=== PATIENT | female | born 1940 | race Caucasian/White ===

== ENCOUNTER → 2017-03-16 | Outpatient (CLI) | payer MEDICARE, BC ==
--- NOTE | 2017-03-20 07:59 | MM ---
Reason for exam: screening (asymptomatic). Last mammogram was performed 1 year and 5 months ago. History: Patient is postmenopausal, has history of high-risk lesion on a previous biopsy at age 67, and history of other cancer. Family history of breast cancer in daughter at age 52. High risk left mammotome panel of the left breast, February 26, 2008. Benign stereotactic core biopsy of the right breast, December 10, 1998. Core biopsy of the right breast. Took estrogen for 21 years beginning at age 46. Physical Findings: A clinical breast exam by your physician is recommended on an annual basis and results should be correlated with mammographic findings. MG 3D Screening Mammo W/Cad Bilateral CC and MLO view(s) were taken. Prior study comparison: October 29, 2015, bilateral MG screening mammo w CAD. September 03, 2014, bilateral MG screening mammo w CAD. There are scattered fibroglandular densities. Previous mammotome biopsy in the right and left breast. There is chronic nodularity bilaterally. No significant changes when compared with prior studies. ASSESSMENT: Negative, BI-RAD 1 RECOMMENDATION: Routine screening mammogram of both breasts in 1 year.
== END | disposition home or self-care (01) ==
LOC: RADMAMWWP 09:35
PROVIDERS: ATTEND Family Medicine
DX: Z12.31 Encounter for screening mammogram for malignant neoplasm of breast (principal)
CPT/HCPCS: 77063; G0202

== ENCOUNTER 2017-07-25 14:02 | Emergency (ER) | payer MEDICARE, BC ==
[2017-07-25 14:10] VITALS: RESP 16; TEMP 97.7
--- NOTE | 2017-07-25 14:38 | ED ---
General Adult HPI - General Chief complaint: Head Injury Stated complaint: Fell/Head Injury Time Seen by Provider: 07/25/17 14:29 Source: patient, family, RN notes reviewed Mode of arrival: wheelchair Limitations: no limitations - History of Present Illness Initial comments: 77-year-old female presents to the emergency Department chief complaint of fall with head injury. On Sunday night she was reaching for something she fell backwards hit the back of her head. She states she did not pass out there is no lightheadedness or dizziness before the fall. She states she iced it without any issues. She states since she's developed this headache and back for head and she's noticed some muscle pain into the left side of her neck with some pain with movement of the neck. She denies any numbness or tingling with this. He they state there is been no fever chills. They were concerned due to the continued pain in the next without that they should be evaluated. Patient denies any recent fever, chills, shortness of breath, chest pain, back pain, abdominal pain, nausea vomiting, numbness or tingling, dysuria or hematuria, constipation or diarrhea, visual changes, or any other current symptoms. - Related Data Home Medications Medication Instructions Recorded Confirmed Aspirin [Adult Low Dose Aspirin EC] 81 mg PO DAILY 04/17/16 07/25/17 Atorvastatin [Lipitor] 10 mg PO DAILY 04/17/16 07/25/17 Benazepril/Hydrochlorothiazide 1 tab PO DAILY 04/17/16 07/25/17 [Lotensin Hct 10-12.5 mg Tablet] Cholecalciferol [Vitamin D3] 6,000 unit PO DAILY 04/17/16 07/25/17 clonazePAM [KlonoPIN] 1 mg PO AC-BRKFST 04/17/16 07/25/17 Cyanocobalamin (Vitamin B-12) 1,000 mcg PO DAILY 07/25/17 07/25/17 [Vitamin B-12] clonazePAM [KlonoPIN] 1 mg PO DAILY@1200 PRN 07/25/17 07/25/17 clonazePAM [KlonoPIN] 2 mg PO HS 07/25/17 07/25/17 Allergies Allergy/AdvReac Type Severity Reaction Status Date / Time pneumococcal vaccine Allergy Rash/Hives Verified 07/25/17 14:43 ciprofloxacin [From Cipro] AdvReac Nausea & Verified 07/25/17 14:43 Vomiting hydrocodone [From Lortab] AdvReac Nausea & Verified 07/25/17 14:43 Vomiting Review of Systems ROS Statement: Those systems with pertinent positive or pertinent negative responses have been documented in the HPI. ROS Other: All systems not noted in ROS Statement are negative. Past Medical History Past Medical History: Cancer, Diabetes Mellitus, GERD/Reflux, Hyperlipidemia, Hypertension Additional Past Medical History / Comment(s): hx:irreg. heart rate, skin cancer , current constipation, diet controlled diabetic History of Any Multi-Drug Resistant Organisms: None Reported Past Surgical History: Heart Catheterization, Hysterectomy, Tonsillectomy Past Anesthesia/Blood Transfusion Reactions: Motion Sickness Past Psychological History: Depression Smoking Status: Never smoker - Past Family History Brother(s) Family Medical History: Cancer Additional Family Medical History / Comment(s): colon Daughter(s) Family Medical History: Cancer Additional Family Medical History / Comment(s): inflammatory cancer stage IV General Exam Limitations: no limitations General appearance: alert, in no apparent distress Head exam: Present: atraumatic, normocephalic, normal inspection Eye exam: Present: normal appearance, PERRL, EOMI. Absent: scleral icterus, conjunctival injection, periorbital swelling ENT exam: Present: normal exam, mucous membranes moist Neck exam: Present: normal inspection, tenderness (Along the left lateral paraspinal region), full ROM. Absent: meningismus, lymphadenopathy Respiratory exam: Present: normal lung sounds bilaterally. Absent: respiratory distress, wheezes, rales, rhonchi, stridor Cardiovascular Exam: Present: regular rate, normal rhythm, normal heart sounds. Absent: systolic murmur, diastolic murmur, rubs, gallop, clicks Neurological exam: Present: alert, oriented X3, CN II-XII intact, normal gait, reflexes normal. Absent: motor sensory deficit Psychiatric exam: Present: normal affect, normal mood Skin exam: Present: warm, dry, intact, normal color. Absent: rash Course Vital Signs 07/25/17 14:06 Temperature 97.7 F Pulse Rate 80 Respiratory 16 Rate Blood Pressure 133/74 O2 Sat by Pulse 97 Oximetry Medical Decision Making - Medical Decision Making 77-year-old female presents for fall with head injury. At this time patient's CAT scan is reviewed. This time we discussed most likely cervical strain. We did discuss that we we'll give her a short prescription for muscle relaxers. We did discuss her return parameters and follow-up and all questions with this. We discussed watching closely. We discussed all questions. Patient in agreement with plan. - Radiology Data Radiology results: report reviewed, image reviewed Disposition Clinical Impression: Cervical strain, Minor head injury without loss of consciousness Disposition: HOME SELF-CARE Condition: Stable Instructions: Head Injury (ED), Cervical Strain (ED) Additional Instructions: Please use medication as discussed. Please follow up with family doctor if symptoms have not improved over the next two days. Please return to the emergency room if your symptoms increase or worsen or for any other concerns. Referrals: Gentry Metcalf MD [Primary Care Provider] - 1-2 days Time of Disposition: 15:37
--- NOTE | 2017-07-25 15:20 | CT ---
EXAMINATION TYPE: CT brain damian loza DATE OF EXAM: 07/25/2017 COMPARISON: NONE HISTORY: Patient complains of fall today with blow to back of head and neck pain. CT DLP: 1625 mGycm. Automated Exposure Control for Dose Reduction was Utilized. TECHNIQUE: CT scan of the head and cervical spine are performed without contrast. FINDINGS: There is no acute intracranial hemorrhage hemorrhage or midline shift identified. There i s ventricular and sulcal prominence consistent with diffuse cerebral atrophy. There is low-attenuatio n in the periventricular white matter. There is 1.0 cm calcified right frontal meningioma or osteoma axial image 24. The globes are intact and the visualized sinuses are clear. The calvarium is intact. Cervical spine is visualized in its entirety from C1 through upper thoracic levels and demonstrates s traightened alignment without evidence of acute fracture or dislocation. Prevertebral soft tissue ap pears within normal limits. The C1-C2 articulation is within normal limits on the coronal images. Vertebral body heights are maintained. There is mild disc space narrowing C5-C6 in the C2-C3 levels. There is mild anterior spurring C3-C4 level. There is moderate disc space narrowing and spurring C6-C 7 level. Spinal canal is grossly preserved on sagittal images. Review of axial images shows multilevel mild left-sided uncovertebral facet degenerative changes. The re is posterior spur disc complex effacing anterior thecal sac at C6-C7 level. There is 1.0 cm left t hyroid nodule posteriorly lower pole level axial image 74. Visualized lung apices are clear. IMPRESSION: 1. There is no acute fracture or dislocation evident in the cervical spine. Straightening of cervical spine with multilevel degenerative changes seen as detailed above 2. No acute intracranial hemorrhage or midline shift is seen. There is mild to moderate diffuse cereb ral atrophy and chronic small vessel ischemic change noted.
[2017-07-25] MEDS ORDERED: CYCLOBENZAPRINE 10MG STARTER 3 TAB BTL PO STA (15:37)
[2017-07-25 15:52] VITALS: BP 140/96; PULSE 70
== END 2017-07-25 15:53 | disposition home or self-care (01) ==
LOC: EC 14:02
DX: S16.1XXA Strain of muscle, fascia and tendon at neck level, initial encounter (principal); S09.90XA Unspecified injury of head, initial encounter; E11.9 Type 2 diabetes mellitus without complications; E78.5 Hyperlipidemia, unspecified; I10 Essential (primary) hypertension; Z85.828 Personal history of other malignant neoplasm of skin; Z79.82 Long term (current) use of aspirin; Z79.899 Other long term (current) drug therapy; Z88.1 Allergy status to other antibiotic agents; Z88.7 Allergy status to serum and vaccine; Z88.8 Allergy status to other drugs, medicaments and biological substances; W18.09XA Striking against other object with subsequent fall, initial encounter; Y92.009 Unspecified place in unspecified non-institutional (private) residence as the place of occurrence of the external cause
CPT/HCPCS: 70450; 72125; 99283

== ENCOUNTER → 2019-03-20 | Outpatient (CLI) | payer MEDICARE, BC ==
--- NOTE | 2019-03-24 10:29 | MM ---
Reason for exam: screening (asymptomatic). Last mammogram was performed 2 years ago. History: Patient is postmenopausal, has history of high-risk lesion on a previous biopsy at age 67, and history of other cancer. Family history of breast cancer in daughter at age 57. High risk left mammotome panel of the left breast, February 26, 2008. Benign stereotactic core biopsy of the right breast, December 10, 1998. Core biopsy of the right breast. Took estrogen for 21 years beginning at age 46. Physical Findings: A clinical breast exam by your physician is recommended on an annual basis and results should be correlated with mammographic findings. MG 3D Screening Mammo W/Cad Bilateral CC and MLO view(s) were taken. Prior study comparison: March 16, 2017, bilateral MG 3d screening mammo w/cad. October 29, 2015, bilateral MG screening mammo w CAD. There are scattered fibroglandular densities. Previous mammotome biopsy in the right and left breast. No significant changes when compared with prior studies. ASSESSMENT: Benign, BI-RAD 2 RECOMMENDATION: Routine screening mammogram of both breasts in 1 year.
== END | disposition home or self-care (01) ==
LOC: RADMAMWWP 15:09
PROVIDERS: ATTEND Family Medicine
DX: Z12.31 Encounter for screening mammogram for malignant neoplasm of breast (principal)
CPT/HCPCS: 77063; 77067

== ENCOUNTER 2019-05-07 02:16 | Inpatient (IN) | payer MEDICARE, BC ==
--- NOTE | 2019-05-07 02:37 | ED ---
Fall HPI - General Chief Complaint: Fall Stated Complaint: Fall, R Arm Injury Time Seen by Provider: 05/07/19 02:22 Source: EMS Mode of arrival: EMS - History of Present Illness Initial Comments: This patient is an 79-year-old woman who presents as a transfer from [facility]. Patient had gone there to be seen about a right shoulder injury. The patient states that tonight around 8 PM, she had gone to pick something up on the stairs. She states that when she stood up she lost balance and fell striking her right shoulder against a wall. She denies having any other injury. She did not hit her head or neck. No chest, back, abdomen or other extremity pain. No loss of consciousness. Patient states that she then called a neighbor who helped get her to the other hospital. At the other hospital, she was found to have a right humerus fracture dislocation, and the case was discussed with our orthopedic surgeon here and she was transferred for further care. The patient states currently that her pain is mild to moderate, aching, constant. She states it is better since being immobilized. She is declining additional analgesia at this point. She denies weakness into the hand or numbness. Complaint: fall -: hour(s) Fall From: standing When Fall Occurred: 4-6 hours [employer] Fall Witnessed: no Place Fall Occurred: home Loss of Consciousness: none Prolonged Down Time?: no Symptoms Prior to Fall: none Location - Extremities: Right: Shoulder Severity: moderate Quality: aching Context: tripped/slipped Associated Symptoms: denies - Related Data Home Medications Medication Instructions Recorded Confirmed Aspirin [Adult Low Dose Aspirin EC] 81 mg PO DAILY 04/17/16 07/25/17 Atorvastatin [Lipitor] 10 mg PO DAILY 04/17/16 07/25/17 Benazepril/Hydrochlorothiazide 1 tab PO DAILY 04/17/16 07/25/17 [Lotensin Hct 10-12.5 mg Tablet] Cholecalciferol [Vitamin D3] 6,000 unit PO DAILY 04/17/16 07/25/17 clonazePAM [KlonoPIN] 1 mg PO AC-BRKFST 04/17/16 07/25/17 Cyanocobalamin (Vitamin B-12) 1,000 mcg PO DAILY 07/25/17 07/25/17 [Vitamin B-12] clonazePAM [KlonoPIN] 1 mg PO DAILY@1200 PRN 07/25/17 07/25/17 clonazePAM [KlonoPIN] 2 mg PO HS 07/25/17 07/25/17 Previous Rx's Medication Instructions Recorded Ibuprofen [Motrin] 600 mg PO Q6HR PRN #20 tab 07/25/17 Allergies Allergy/AdvReac Type Severity Reaction Status Date / Time pneumococcal vaccine Allergy Rash/Hives Verified 07/25/17 14:43 ciprofloxacin [From Cipro] AdvReac Nausea & Verified 07/25/17 14:43 Vomiting hydrocodone [From Lortab] AdvReac Nausea & Verified 07/25/17 14:43 Vomiting Review of Systems ROS Statement: Those systems with pertinent positive or pertinent negative responses have been documented in the HPI. ROS Other: All systems not noted in ROS Statement are negative. Constitutional: Denies: fever, chills, weakness Respiratory: Denies: cough, dyspnea Cardiovascular: Denies: chest pain, palpitations Gastrointestinal: Denies: abdominal pain, vomiting Musculoskeletal: Reports: as per HPI, arthralgia. Denies: back pain Skin: Denies: rash Neurological: Denies: headache, weakness, numbness Past Medical History Past Medical History: Cancer, Diabetes Mellitus, GERD/Reflux, Hyperlipidemia, Hypertension Additional Past Medical History / Comment(s): hx:irreg. heart rate, skin cancer, current constipation, diet controlled diabetic History of Any Multi-Drug Resistant Organisms: None Reported Past Surgical History: Heart Catheterization, Hysterectomy, Tonsillectomy Past Anesthesia/Blood Transfusion Reactions: Motion Sickness Past Psychological History: Depression Smoking Status: Never smoker - Past Family History Brother(s) Family Medical History: Cancer Additional Family Medical History / Comment(s): colon Daughter(s) Family Medical History: Cancer Additional Family Medical History / Comment(s): inflammatory cancer stage IV General Exam General appearance: alert, in no apparent distress Head exam: Present: atraumatic, normocephalic Eye exam: Present: normal appearance. Absent: scleral icterus, conjunctival injection Neck exam: Present: normal inspection, full ROM. Absent: tenderness Respiratory exam: Present: normal lung sounds bilaterally. Absent: respiratory distress, wheezes, rales, rhonchi, stridor, chest wall tenderness Cardiovascular Exam: Present: regular rate, normal rhythm, normal heart sounds. Absent: systolic murmur, diastolic murmur, rubs, gallop GI/Abdominal exam: Present: soft. Absent: distended, tenderness, guarding, rebound Extremities exam: Present: tenderness (Proximal right humerus), normal capillary refill, other (Right shoulder sling) Back exam: Present: normal inspection. Absent: vertebral tenderness Neurological exam: Present: alert. Absent: motor sensory deficit Skin exam: Present: warm, dry, intact, normal color. Absent: rash Course Vital Signs 05/07/19 05/07/19 05/07/19 02:17 03:48 03:59 Temperature 98.2 F Pulse Rate 87 86 70 Respiratory 18 16 16 Rate Blood Pressure 154/88 150/65 156/80 O2 Sat by Pulse 96 94 L 100 Oximetry 05/07/19 05/07/19 05/07/19 04:06 04:18 04:29 Temperature 97.9 F 98.7 F 97.9 F Pulse Rate 92 78 91 Respiratory 18 16 18 Rate Blood Pressure 160/69 142/71 142/71 O2 Sat by Pulse 98 96 96 Oximetry Procedures - Orthopedic Joint Reduction Joint #1 Consent Obtained: written consent Side: right Joint Reduction Location: shoulder Analgesia: procedural sedation Shoulder Technique Used (if applicable): external rotation Post-Reduction Neuro Exam: intact Post-Reduction Vascular Exam: intact Post Reduction X-Ray Obtained: Yes Post Reduction X-Ray Results: reduced Splint Applied: Yes (Right shoulder sling) Patient Tolerated Procedure: well, no complications - Procedural Sedation Procedural Sedation Start Time: 03:50 Procedural Sedation Stop Time: 04:07 Indications: fracture/dislocation reduction ASA Class: II Mallampati Airway Score: 3 Time of Last PO Intake: 20:00 Preparation: athletic monitor applied, pulse oximeter, capnometry used, supplemental O2 applied, suction/airway equipment at bedside, IV secured IV Etomidate Dose (mgs): 8 Complications: hypoxia Interventions: airway repositioned (Mandible lift) Patient Tolerated Procedure: well Disposition Clinical Impression: Fall, Humerus head fracture, Dislocation of humerus, anterior closed Disposition: ADMITTED IP TO THIS [facility] Condition: Fair
[2019-05-07] MEDS ORDERED: ONDANSETRON 4 MG/2 ML VIAL IVP PRN (02:38)
[2019-05-07] MEDS ORDERED: HYDROmorphone 0.5 MG/0.5 ML SYRINGE IVP PRN (02:38)
[2019-05-07] MEDS ORDERED: NALOXONE 0.4 MG/ML 1 ML VIAL IV PRN (02:38)
[2019-05-07] MEDS ORDERED: HYDROmorphone 1 MG/ML 1 ML SYRINGE IVP PRN (02:38)
[2019-05-07] MEDS ORDERED: MAG HYDROX/AL HYDROX/SIMETH 30 ML CUP PO PRN (02:38)
[2019-05-07] MEDS: SODIUM CHLORIDE 0.9% 1,000 ML IV SCH ×2 (02:49→16:22)
[2019-05-07] MEDS ORDERED: ETOMIDATE 2 MG/ML 10 ML VIAL IV STA (02:50)
--- NOTE | 2019-05-07 04:13 | XR ---
EXAMINATION TYPE: XR shoulder limited RT DATE OF EXAM: 05/07/2019 COMPARISON: Yesterday HISTORY: Post reduction TECHNIQUE: Single view. FINDINGS: A single view shows anatomic reduction of the glenohumeral joint. I see no fracture line. : IMPRESSION: Anatomic reduction of the shoulder joint. No definite fracture line seen. Limited exam.
[2019-05-07] MEDS ORDERED: clonazePAM 1 MG TAB PO SCH ×3 (07:30→21:00)
[2019-05-07 08:21] LABS: Glucose,Whole Blood 109 mg/dL (75-99)
[2019-05-07] MEDS ORDERED: DOCUSATE 100 MG CAP PO PRN (09:00)
[2019-05-07] MEDS: ATORVASTATIN 10 MG TAB PO SCH (10:32)
[2019-05-07] MEDS: CHOLECALCIFEROL 1,000 UNIT TAB PO SCH (10:33)
[2019-05-07] MEDS: CYANOCOBALAMIN 500 MCG TAB PO SCH (10:36)
[2019-05-07] MEDS: FAMOTIDINE 20 MG TAB PO SCH ×2 (10:38→20:14)
[2019-05-07] MEDS: LISINOPRIL-HCTZ 10-12.5 MG 1 EACH TAB PO SCH (10:38)
--- NOTE | 2019-05-07 10:54 | P.HPOR ---
History of Present Illness H&P Date: 05/07/19 Chief Complaint: Right Shoulder This patient is an 79-year-old woman seen at bedside this morning. She presented as a transfer from [facility] late last evening/founding partner after a failed reduction of right shoulder dislocation. She states that she injured her right shoulder last evening when she tripped on her stairs and fell striking her right shoulder against a wall. She denies having any other injury. She did not hit her head or neck. No chest, back, abdomen or other extremity pain. No loss of consciousness. The patient states currently that her pain is controlled and mild. She states it is better since being reduced and immobilized. She denies weakness into the hand or numbness/tingling. Review of Systems All systems: negative Constitutional: Denies chills, Denies fever Eyes: denies blurred vision, denies pain Ears, nose, mouth and throat: Denies headache, Denies sore throat Cardiovascular: Denies chest pain, Denies shortness of breath Respiratory: Denies cough Gastrointestinal: Denies abdominal pain, Denies diarrhea, Denies nausea, Denies vomiting Genitourinary: Denies dysuria, Denies hematuria Musculoskeletal: Denies myalgias Integumentary: Denies pruritus, Denies rash Neurological: Denies numbness, Denies weakness Psychiatric: Denies anxiety, Denies depression Endocrine: Denies fatigue, Denies weight change Past Medical History Past Medical History: Cancer, Diabetes Mellitus, GERD/Reflux, Hyperlipidemia, Hypertension Additional Past Medical History / Comment(s): hx:irreg. heart rate, skin cancer, current constipation, diet controlled diabetic History of Any Multi-Drug Resistant Organisms: None Reported Past Surgical History: Heart Catheterization, Hysterectomy, Tonsillectomy Past Anesthesia/Blood Transfusion Reactions: Motion Sickness Past Psychological History: Depression Smoking Status: Never smoker - Past Family History Brother(s) Family Medical History: Cancer Additional Family Medical History / Comment(s): colon Daughter(s) Family Medical History: Cancer Additional Family Medical History / Comment(s): inflammatory cancer stage IV Medications and Allergies Home Medications Medication Instructions Recorded Confirmed Type Aspirin [Adult Low Dose Aspirin EC] 81 mg PO DAILY 04/17/16 05/07/19 History Benazepril/Hydrochlorothiazide 1 tab PO DAILY 04/17/16 05/07/19 History [Lotensin Hct 10-12.5 mg Tablet] Cyanocobalamin (Vitamin B-12) 1,000 mcg PO DAILY 07/25/17 05/07/19 History [Vitamin B-12] Gemfibrozil [Lopid] 600 mg PO DAILY 05/07/19 05/07/19 History Omeprazole [PriLOSEC] 20 mg PO DAILY 05/07/19 05/07/19 History Vitamin D3(Unknown Dose) 1 tab PO DAILY 05/07/19 05/07/19 History busPIRone HCL 15 mg PO BID 05/07/19 05/07/19 History clonazePAM [KlonoPIN] 2 mg PO TID 05/07/19 05/07/19 History cycloSPORINE [Restasis] 1 drop BOTH EYES BID 05/07/19 05/07/19 History Allergies Allergy/AdvReac Type Severity Reaction Status Date / Time pneumococcal vaccine Allergy Rash/Hives Verified 05/07/19 10:24 ciprofloxacin [From Cipro] AdvReac Nausea & Verified 05/07/19 10:24 Vomiting hydrocodone [From Lortab] AdvReac Nausea & Verified 05/07/19 10:24 Vomiting Physical Examination Inspection of right shoulder and arm shows no deformity. There is evolving echymosis in the right upper arm as expected. ROM of [facility] shoulder not tested due to recent dislocation. She is in sling. Neurovascular status is intact grossly with motor and sensation throughout the arm and hand. Hand Riveter and finger intrinsics are 5/5. 2+ radial pulse present and less than 2 sec cap refill present. Results Single view shoulder Xray taken at [facility] shows post reduction GH joint located. Previous CT in [place] shows avulsion of greater tuberosity - Labs Labs: Abnormal Lab Results - Last 24 Hours (Table) 05/07/19 Range/Units 08:09 POC Glucose (mg/dL) 109 H (75-99) mg/dL Assessment and Plan (1) Dislocation of humerus, anterior closed Narrative/Plan: The shoulder has been reduced in ED, there are no plans for surgical intervention, she is NVI and her pain is controlled. She is to maintain sling, be non weightbearing with RUE and follow up in two weeks in office. She may be discharged from an orthopedic standpoint. Current Visit: Yes Status: Acute Priority: Medium Code(s): S43.016A - ANTERIOR DISLOCATION OF UNSPECIFIED HUMERUS, INIT ENCNTR SNOMED Code(s): 02917754 Time with Patient: Less than 30
[2019-05-07] MEDS ORDERED: clonazePAM 1 MG TAB PO PRN ×2 (11:11→12:00)
[2019-05-07 12:20] LABS: Glucose,Whole Blood 109 mg/dL (75-99)
[2019-05-07 13:21] LABS: Appearance,Urine Cloudy (Clear); Bilirubin,Urine Negative (Negative); Blood,Urine Negative (Negative); Color,Urine Yellow; Glucose,Urine (UA) Negative (Negative); Ketones,Urine Trace (Negative); Leukocyte Esterase,Urine Large (Negative); Mucus,Urine Rare /hpf; Nitrite,Urine Negative (Negative); PH, Urine 5.5 (5.0-8.0); Protein,Urine Trace (Negative); RBC,Urine 5 /hpf (0-5); Specific Gravity,Urine 1.015 (1.001-1.035); Squamous Epithelial Cell,Urine <1 /hpf (0-4); Urobilinogen,Urine <2.0 mg/dL (<2.0)
--- NOTE | 2019-05-07 13:39 | P.CONS ---
History of Present Illness - Reason for Consult Consult date: 05/07/19 Medical management - History of Present Illness This is an 79-year-old female patient of Dr. Zac Metcalf with past medical history of hypertension, hyperlipidemia, gastroesophageal reflux disease, diabetes mellitus type 2, skin cancer, recurrent depression and generalized anxiety disorder. 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 She denies any loss of consciousness, head injury, other injuries. She denies lightheadedness or dizziness. She was initially seen at [facility] after a field reduction of the right patient is planning to return home at the time of discharge. shoulder dislocation. In the emergency center, patient underwent shoulder reduction and was subsequently admitted to orthopedics on the [facility] floor. The pain is currently well controlled, right arm sling in place. Review of Systems Constitutional: Denies chills, Denies fatigue, Denies fever, Denies lethargy, Denies poor appetite, Denies weakness, Denies weight loss Eyes: denies blurred vision, denies pain Ears, nose, mouth and throat: Denies dysphagia, Denies headache, Denies nasal congestion, Denies nasal discharge, Denies sore throat, Denies vertigo Cardiovascular: Denies chest pain, Denies decreased exercise tolerance, Denies dyspnea on exertion, Denies leg edema, Denies lightheadedness, Denies shortness of breath, Denies syncope Respiratory: Denies cough, Denies cough with sputum, Denies dyspnea, Denies excessive sputum, Denies hemoptysis, Denies home oxygen, Denies wheezing Gastrointestinal: Denies abdominal pain, Denies diarrhea, Denies loss of appetite, Denies melena, Denies nausea, Denies vomiting Genitourinary: Denies dysuria, Denies hematuria, Denies urgency, Denies urinary frequency Musculoskeletal: Denies frequent falls, Denies gait dysfunction, Denies muscle weakness, Denies myalgias Integumentary: Denies pruritus, Denies rash, Denies wounds Neurological: Denies change in mentation, Denies change in speech, Denies numbness, Denies weakness Psychiatric: Denies anxiety, Denies depression Endocrine: Denies fatigue, Denies weight change Past Medical History Past Medical History: Cancer, Diabetes Mellitus, GERD/Reflux, Hyperlipidemia, Hypertension Additional Past Medical History / Comment(s): hx:irreg. heart rate, skin cancer, current constipation, diet controlled diabetic History of Any Multi-Drug Resistant Organisms: None Reported Past Surgical History: Heart Catheterization, Hysterectomy, Tonsillectomy Past Anesthesia/Blood Transfusion Reactions: Motion Sickness Past Psychological History: Depression Smoking Status: Never smoker Additional Past Alcohol Use History / Comment(s): Patient is a lifelong nonsmoker, no illicit drug use, no alcohol use. Patient lives at home alone. is at the memory care unit at [facility]. - Past Family History Brother(s) Family Medical History: Cancer Additional Family Medical History / Comment(s): Patient has one brother the past from cancer most likely ulcerative colon cancer with metastatic disease. Daughter(s) Family Medical History: Cancer Additional Family Medical History / Comment(s): Patient is a total of 3 daughters to her life with no major medical problems. One has from breast cancer with metastatic disease to the brain. Father Additional Family Medical History / Comment(s): Father at age 76 from myocardial infarction. Mother Additional Family Medical History / Comment(s): Mother at age 92 from old age. Sister(s) Additional Family Medical History / Comment(s): Patient has 2 sisters. One has degenerative disc disease and chronic back problems, one she has no contact with. Medications and Allergies Home Medications Medication Instructions Recorded Confirmed Type Aspirin [Adult Low Dose Aspirin EC] 81 mg PO DAILY 04/17/16 05/07/19 History Benazepril/Hydrochlorothiazide 1 tab PO DAILY 04/17/16 05/07/19 History [Lotensin Hct 10-12.5 mg Tablet] Cyanocobalamin (Vitamin B-12) 1,000 mcg PO DAILY 07/25/17 05/07/19 History [Vitamin B-12] Gemfibrozil [Lopid] 600 mg PO DAILY 05/07/19 05/07/19 History Omeprazole [PriLOSEC] 20 mg PO DAILY 05/07/19 05/07/19 History Vitamin D3(Unknown Dose) 1 tab PO DAILY 05/07/19 05/07/19 History busPIRone HCL 15 mg PO BID 05/07/19 05/07/19 History clonazePAM [KlonoPIN] 2 mg PO TID 05/07/19 05/07/19 History cycloSPORINE [Restasis] 1 drop BOTH EYES BID 05/07/19 05/07/19 History Allergies Allergy/AdvReac Type Severity Reaction Status Date / Time pneumococcal vaccine Allergy Rash/Hives Verified 05/07/19 10:24 ciprofloxacin [From Cipro] AdvReac Nausea & Verified 05/07/19 10:24 Vomiting hydrocodone [From Lortab] AdvReac Nausea & Verified 05/07/19 10:24 Vomiting Physical Exam Vitals: Vital Signs Temp Pulse Pulse Pulse Resp BP BP 05/07/19 07:56 98.9 F 104 H 15 171/79 05/07/19 04:55 98.2 F 80 14 156/73 05/07/19 04:29 97.9 F 91 18 142/71 05/07/19 04:18 98.7 F 78 16 142/71 05/07/19 04:06 97.9 F 92 18 160/69 05/07/19 03:59 70 16 156/80 05/07/19 03:48 86 16 150/65 05/07/19 02:17 98.2 F 87 18 154/88 Pulse Ox 05/07/19 07:56 94 L 05/07/19 04:55 96 05/07/19 04:29 96 05/07/19 04:18 96 05/07/19 04:06 98 05/07/19 03:59 100 05/07/19 03:48 94 L 05/07/19 02:17 96 Intake and Output 05/06/19 05/07/19 05/07/19 22:59 06:59 14:59 Intake Total 125 Balance 125 Intake: Intake, IV Titration 125 Amount Sodium Chloride 0.9% 1, 125 000 ml @ 125 mls/hr IV . Q8H [facility] Rx#:[id number] Other: Weight 74.843 kg Gen: This is a 79-year-old female. Patient was independent appears to be comfortable and in no acute distress. HEENT: Head is atraumatic, normocephalic. Pupils equal, round. Sclerae is anicteric. NECK: Supple. No JVD. No lymphadenopathy. No thyromegaly. LUNGS: Clear to auscultation. No wheezes or rhonchi. No intercostal retractions. HEART: Regular rate and rhythm. No murmur. ABDOMEN: Soft. Bowel sounds are present. No masses. No tenderness. EXTREMITIES: No pedal edema. No calf tenderness. Dorsalis pedis +2 bilaterally. Right arm sling in place. NEUROLOGICAL: Patient is awake, alert and oriented x3. Cranial nerves 2 through 12 are grossly intact. Results Labs: Abnormal Lab Results - Last 24 Hours (Table) 05/07/19 Range/Units 08:09 POC Glucose (mg/dL) 109 H (75-99) mg/dL Assessment and Plan Plan: 1. Dislocation right humerus status post reduction. Patient has been seen by orthopedic. Patient to maintain sling and be nonweightbearing. Patient is to follow-up in the office in 2 weeks. 2. Hypertension. Continue Lotensin. 3. Hyperlipidemia. Continue Lopid. 4. History of diabetes mellitus type 2. 5. Recurrent depression and generalized anxiety disorder. Continue BuSpar 15 mg twice daily, Klonopin 2 mg 3 times daily. 6. Gastroesophageal reflux disease. Continue omeprazole. 7. History of diabetes mellitus type 2, resolved after weight loss. Discharge plan: Home. Medication reconciliation has been reviewed for discharge. Patient is cleared from medicine for discharge home. Impression and plan of care have been directed as dictated by the signing physician. Cheri Dewitt nurse practitioner acting as scribe for signing physician.
[2019-05-07] MEDS: busPIRone HCl 10 MG TAB PO SCH (16:15)
--- NOTE | 2019-05-07 16:27 | P.DS ---
Providers Date of admission: 05/07/19 02:38 Expected date of discharge: 05/07/19 Attending physician: García Balderrama Consults: 05/07/19 10:08 Consult Physician Routine Consulting Provider: Cornelius Garcia Reason/Comments: medical management Do you want consulting provider notified?: Yes Primary care physician: Gentry Metcalf - Discharge Diagnosis(es) (1) Dislocation of humerus, anterior closed Patient was admitted 05/07/19 through the ED for right shoulder glenohumeral dislocation. The shoulder dislocation was successfully reduced in ED. Xrays showed confirmation of reduction. Her pain is improved and controlled. She is neurovascularly throughout the right upper extremity. Hospital course has remained without complication. On day of discharge she is afebrile, vital signs stable, labs within acceptable ranges, tolerating by mouth meds and diet, voiding without difficulty, positive flatus, denies abdominal pain or calf pain, pain is controlled on oral pain medication and has no new complaints. Calves are soft and nontender, abdomen soft and nontender. Review of systems is negative for numbness, tingling, fever, chills, chest pain, shortness of breath, nausea, vomiting, dizziness, headaches, slurred speech or other. She will be discharged to home and maintain sling untill follow up in two weeks Current Visit: Yes Status: Acute Priority: Medium Patient Condition at Discharge: Fair Plan - Discharge Summary Discharge Rx Participant: Yes New Discharge Prescriptions: No Action Benazepril/Hydrochlorothiazide [Lotensin Hct 10-12.5 mg Tablet] 1 tab PO DAILY Aspirin [Adult Low Dose Aspirin EC] 81 mg PO DAILY Cyanocobalamin (Vitamin B-12) [Vitamin B-12] 1,000 mcg PO DAILY busPIRone HCL 15 mg PO BID Gemfibrozil [Lopid] 600 mg PO DAILY cycloSPORINE [Restasis] 1 drop BOTH EYES BID Vitamin D3(Unknown Dose) 1 tab PO DAILY Omeprazole [PriLOSEC] 20 mg PO DAILY clonazePAM [KlonoPIN] 2 mg PO TID Discharge Medication List Aspirin [Adult Low Dose Aspirin EC] 81 mg PO DAILY 04/17/16 [History] Benazepril/Hydrochlorothiazide [Lotensin Hct 10-12.5 mg Tablet] 1 tab PO DAILY 04/17/16 [History] Cyanocobalamin (Vitamin B-12) [Vitamin B-12] 1,000 mcg PO DAILY 07/25/17 [History] Gemfibrozil [Lopid] 600 mg PO DAILY 05/07/19 [History] Omeprazole [PriLOSEC] 20 mg PO DAILY 05/07/19 [History] Vitamin D3(Unknown Dose) 1 tab PO DAILY 05/07/19 [History] busPIRone HCL 15 mg PO BID 05/07/19 [History] clonazePAM [KlonoPIN] 2 mg PO TID 05/07/19 [History] cycloSPORINE [Restasis] 1 drop BOTH EYES BID 05/07/19 [History] Follow up Appointment(s)/Referral(s): García Balderrama MD [STAFF PHYSICIAN] - 05/21/19 9:00 am Gentry Metcalf MD [Primary Care Provider] - 05/15/19 11:30 am Activity/Diet/Wound Care/Special Instructions: maintain sling non weightbearing RUE take meds as directed F/U in office in one week Discharge Disposition: HOME SELF-CARE
[2019-05-07] MEDS: traMADol 50 MG TAB PO PRN (16:30)
[2019-05-07 17:20] LABS: Glucose,Whole Blood 129 mg/dL (75-99)
[2019-05-07 20:13] LABS: Glucose,Whole Blood 132 mg/dL (75-99)
[2019-05-07] MEDS: clonazePAM 1 MG TAB PO SCH (20:14)
[2019-05-08 07:19] LABS: Glucose,Whole Blood 100 mg/dL (75-99)
[2019-05-08] MEDS: clonazePAM 1 MG TAB PO SCH ×2 (08:12→20:10)
[2019-05-08] MEDS: ATORVASTATIN 10 MG TAB PO SCH (08:12)
[2019-05-08] MEDS: busPIRone HCl 10 MG TAB PO SCH ×2 (08:12→20:11)
[2019-05-08] MEDS: CYANOCOBALAMIN 500 MCG TAB PO SCH (08:13)
[2019-05-08] MEDS: CHOLECALCIFEROL 1,000 UNIT TAB PO SCH (08:13)
[2019-05-08] MEDS: FAMOTIDINE 20 MG TAB PO SCH ×2 (08:13→20:11)
[2019-05-08] MEDS: traMADol 50 MG TAB PO PRN ×2 (08:15→17:37)
[2019-05-08] MEDS: LISINOPRIL-HCTZ 10-12.5 MG 1 EACH TAB PO SCH (09:31)
[2019-05-08 11:46] LABS: Glucose,Whole Blood 111 mg/dL (75-99)
--- NOTE | 2019-05-08 14:33 | P.PN ---
Subjective Progress Note Date: 05/08/19 This is an 79-year-old female patient of Dr. Zac Metcalf with past medical history of hypertension, hyperlipidemia, gastroesophageal reflux disease, diabetes mellitus type 2, skin cancer, recurrent depression and generalized anxiety disorder. 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 She denies any loss of consciousness, head injury, other injuries. She denies lightheadedness or dizziness. She was initially seen at [facility] after a field reduction of the right patient is planning to return home at the time of discharge. shoulder dislocation. In the emergency center, patient underwent shoulder reduction and was subsequently admitted to orthopedics on the [facility] floor. The pain is currently well controlled, right arm sling in place. 05/08: Patient is followed by PT and OT with recommendations for subacute rehab. Patient states that she would like to go to [facility] where her is currently a patient on the memory care [facility]. Patient does state today that she did have urinary symptoms with dysuria when she came in the hospital. There was a urinalysis obtained yesterday afternoon which has been reviewed and positive for urinary tract infection. Patient will be started on Rocephin. Urine culture is in progress. Review of Systems Constitutional: Denies chills, Denies fatigue, Denies fever, Denies lethargy, Denies poor appetite, Denies weakness, Denies weight loss Eyes: denies blurred vision, denies pain Ears, nose, mouth and throat: Denies dysphagia, Denies headache, Denies nasal congestion, Denies nasal discharge, Denies sore throat, Denies vertigo Cardiovascular: Denies chest pain, Denies decreased exercise tolerance, Denies dyspnea on exertion, Denies leg edema, Denies lightheadedness, Denies shortness of breath, Denies syncope Respiratory: Denies cough, Denies cough with sputum, Denies dyspnea, Denies excessive sputum, Denies hemoptysis, Denies home oxygen, Denies wheezing Gastrointestinal: Denies abdominal pain, Denies diarrhea, Denies loss of appetite, Denies melena, Denies nausea, Denies vomiting Genitourinary: Reports dysuria, Denies hematuria, Denies urgency, Denies urinary frequency Musculoskeletal: Denies frequent falls, Denies gait dysfunction, Denies muscle weakness, Denies myalgias Integumentary: Denies pruritus, Denies rash, Denies wounds Neurological: Denies change in mentation, Denies change in speech, Denies numbness, Denies weakness Psychiatric: Denies anxiety, Denies depression Endocrine: Denies fatigue, Denies weight change Objective - Vital Signs Vital signs: Vital Signs Temp 98.3 F 05/08/19 07:00 Pulse 91 05/08/19 07:00 Resp 17 05/08/19 07:00 BP 126/67 05/08/19 07:00 Pulse Ox 94 L 05/08/19 07:00 Intake & Output 05/07/19 05/08/19 05/08/19 18:59 06:59 18:59 Intake Total 480 Balance 480 Intake: Oral 480 Other: Voiding Method Toilet # Voids 1 1 - Exam Gen: This is a 79-year-old female. Patient is sitting up in chair and appears to be comfortable and in no acute distress. HEENT: Head is atraumatic, normocephalic. Pupils equal, round. Sclerae is anicteric. NECK: Supple. No JVD. No lymphadenopathy. No thyromegaly. LUNGS: Clear to auscultation. No wheezes or rhonchi. No intercostal retractions. HEART: Regular rate and rhythm. No murmur. ABDOMEN: Soft. Bowel sounds are present. No masses. No tenderness. EXTREMITIES: No pedal edema. No calf tenderness. Dorsalis pedis +2 bilaterally. Right arm sling in place. NEUROLOGICAL: Patient is awake, alert and oriented x3. Cranial nerves 2 through 12 are grossly intact. - Labs Labs: Abnormal Lab Results - Last 24 Hours (Table) 05/07/19 05/07/19 05/07/19 Range/Units 12:08 12:58 17:01 POC Glucose (mg/dL) 109 H 129 H (75-99) mg/dL Urine Appearance Cloudy H (Clear) Urine Protein Trace H (Negative) Urine Ketones Trace H (Negative) Ur Leukocyte Esterase Large H (Negative) Urine WBC >182 H (0-5) /hpf Urine Mucus Rare H (None) /hpf 05/07/19 05/08/19 Range/Units 20:01 07:05 POC Glucose (mg/dL) 132 H 100 H (75-99) mg/dL Urine Appearance (Clear) Urine Protein (Negative) Urine Ketones (Negative) Ur Leukocyte Esterase (Negative) Urine WBC (0-5) /hpf Urine Mucus (None) /hpf Microbiology - Last 24 Hours (Table) 05/07/19 12:58 Urine Culture - Preliminary Urine,Voided Assessment and Plan Plan: 1. Dislocation right humerus status post reduction. Patient has been seen by orthopedic. Patient to maintain sling and be nonweightbearing. Patient is to follow-up in the office in 2 weeks. 2. Hypertension. Continue Lotensin. 3. Hyperlipidemia. Continue Lopid. 4. History of diabetes mellitus type 2. 5. Recurrent depression and generalized anxiety disorder. Continue BuSpar 15 mg twice daily, Klonopin 2 mg 3 times daily. 6. Gastroesophageal reflux disease. Continue omeprazole. 7. History of diabetes mellitus type 2, resolved after weight loss. 8. Acute urinary tract infection, present on admission. Start Rocephin. Await urine culture. Discharge plan: Subacute rehab Impression and plan of care have been directed as dictated by the signing physician. Cheri Dewitt nurse practitioner acting as scribe for signing physician.
[2019-05-08 16:47] LABS: Glucose,Whole Blood 124 mg/dL (75-99)
[2019-05-08 19:56] LABS: Glucose,Whole Blood 141 mg/dL (75-99)
[2019-05-09] MEDS: traMADol 50 MG TAB PO PRN ×2 (02:16→08:14)
[2019-05-09 06:52] LABS: Glucose,Whole Blood 133 mg/dL (75-99)
[2019-05-09] MEDS: ATORVASTATIN 10 MG TAB PO SCH (08:14)
[2019-05-09] MEDS: clonazePAM 1 MG TAB PO SCH ×2 (08:14→20:08)
[2019-05-09] MEDS: CYANOCOBALAMIN 500 MCG TAB PO SCH (08:15)
[2019-05-09] MEDS: CHOLECALCIFEROL 1,000 UNIT TAB PO SCH (08:15)
[2019-05-09] MEDS: FAMOTIDINE 20 MG TAB PO SCH ×2 (08:15→20:08)
[2019-05-09] MEDS: busPIRone HCl 10 MG TAB PO SCH ×2 (08:16→20:08)
--- NOTE | 2019-05-09 09:45 | P.PN ---
Subjective Progress Note Date: 05/09/19 Principal diagnosis: Right Shoulder Dislocation Patient is a pleasant 79-year-old female seen at bedside this morning. We have been following her for status post right shoulder dislocation and reduction. She is having right wrist pain this morning. She had no new trauma last e vening. She is denying constant numbness or tingling. She has some mild discomfort in the right shoulder as expected he continues to be in sling. She has no other complaints. Objective - Vital Signs Vital signs: Vital Signs Temp 98.3 F 05/09/19 07:00 Pulse 81 05/09/19 07:00 Resp 16 05/09/19 07:00 BP 123/62 05/09/19 07:00 Pulse Ox 96 05/09/19 07:00 Intake & Output 05/08/19 05/09/19 05/09/19 18:59 06:59 18:59 Intake Total 480 118 Output Total 2 Balance -2 480 118 Intake: Oral 480 118 Output: Urine 2 Other: Voiding Method Toilet # Voids 2 1 - Exam Right shoulder shows no deformity. Is benign to inspection. She remains and sling. Range of motion of the shoulders not tested due to recent dislocation. Neurovascular status is grossly intact throughout the right upper extremity. The right wrist has mild swelling. It is tender to touch. There is pain with range of motion of the right wrist. There is no deformity. There is no erythema or ecchymoses. 2+ radial pulses present and less than 2 second capill [place] refill is present. - Constitutional General appearance: Present: no acute distress - Labs Labs: Abnormal Lab Results - Last 24 Hours (Table) 05/08/19 05/08/19 05/08/19 Range/Units 11:34 16:32 19:45 POC Glucose (mg/dL) 111 H 124 H 141 H (75-99) mg/dL 05/09/19 Range/Units 06:41 POC Glucose (mg/dL) 133 H (75-99) mg/dL Microbiology - Last 24 Hours (Table) 05/07/19 12:58 Urine Culture - Final Urine,Voided Aerococcus urinae Assessment and Plan (1) Dislocation of humerus, anterior closed Narrative/Plan: The shoulder has been reduced in ED, there are no plans for surgical intervention. We will obtain a portable x-ray of the right wrist. She is to maintain sling, be non weightbearing with RUE and follow up in two weeks in office. She is pending transfer to [facility]. She may be discharged from an orthopedic standpoint when approved. Current Visit: Yes Status: Acute Priority: Medium Code(s): S43.016A - ANTERIOR DISLOCATION OF UNSPECIFIED HUMERUS, INIT ENCNTR SNOMED Code(s): 65604048 Time with Patient: Less than 30
[2019-05-09] MEDS: LISINOPRIL-HCTZ 10-12.5 MG 1 EACH TAB PO SCH (10:02)
--- NOTE | 2019-05-09 11:19 | XR ---
EXAMINATION TYPE: XR wrist limited RT DATE OF EXAM: 05/09/2019 CLINICAL HISTORY: Right wrist pain after fall TECHNIQUE: Frontal and lateral images of the right wrist are obtained. COMPARISON: None FINDINGS: There is diffuse osseous demineralization seen. Lucency of the radial styloid could relate to a nondisplaced fracture or vascular groove. Very mild negative ulnar variance noted. Extensive humza cification of the triangle fibrocartilage. Carpal carpal interspaces are maintained. Mild soft tissue swelling about the right wrist. Moderate degenerative changes of the first carpometacarpal joint. IMPRESSION: Questionable nondisplaced intra-articular radial styloid fracture vascular groove, evalua tion is slightly limited given diffuse osseous demineralization. [facility] for focal uptake and confirmed fracture.
[2019-05-09 11:56] LABS: Glucose,Whole Blood 134 mg/dL (75-99)
--- NOTE | 2019-05-09 14:54 | P.PN ---
Subjective Progress Note Date: 05/09/19 This is an 79-year-old female patient of Dr. Zac Metcalf with past medical history of hypertension, hyperlipidemia, gastroesophageal reflux disease, diabetes mellitus type 2, skin cancer, recurrent depression and generalized anxiety disorder. Patient states that she bent over on the stairs to cotton picker something in her slippers slipped and she ended up falling hitting the wall on her right side. She denies any loss of consciousness, head injury, other injuries. She denies lightheadedness or dizziness. She was initially seen at [facility] after a field reduction of the right patient is planning to return home at the time of discharge. shoulder dislocation. In the emergency center, patient underwent shoulder reduction and was subsequently admitted to orthopedics on the [facility] floor. The pain is currently well controlled, right arm sling in place. 05/08: Patient is followed by PT and OT with recommendations for subacute rehab. Patient states that she would like to go to [facility] where her is currently a patient on the memory care rodr[facility]. Patient does state today that she did have urinary symptoms with dysuria when she came in the hospital. There was a urinalysis obtained yesterday afternoon which has been reviewed and positive for urinary tract infection. Patient will be started on Rocephin. Urine culture is in progress. 05/09: Patient is complaining of increased pain to her right shoulder. She denies having any shortness of breath. She did have a bowel movement. She states she is not eating very much because she is not hungry. She has been afebrile, heart rate 81, blood pressure 123/62, pulse ox 96% on room air. Patient's discharge plan is to [facility] which will occur for tomorrow. Urine culture is showing Aerococcus urinary and sensitivity is pending. Patient is currently on ceftriaxone. We will follow up tomorrow regarding urine culture with anticipated discharge to care home tomorrow. Review of Systems Constitutional: Denies chills, Denies fatigue, Denies fever, Denies lethargy, Denies poor appetite, Denies weakness, Denies weight loss Ears, nose, mouth and throat: Denies dysphagia, Denies headache, Denies nasal congestion, Denies nasal discharge, Denies sore throat, Denies vertigo Cardiovascular: Denies chest pain, Denies decreased exercise tolerance, Denies dyspnea on exertion, Denies leg edema, Denies lightheadedness, Denies shortness of breath, Denies syncope Respiratory: Denies cough, Denies cough with sputum, Denies dyspnea, Denies excessive sputum, Denies hemoptysis, Denies home oxygen, Denies wheezing Gastrointestinal: Denies abdominal pain, Denies diarrhea, Denies loss of appetite, Denies melena, Denies nausea, Denies vomiting Genitourinary: Reports dysuria, Denies hematuria, Denies urgency, Denies urinary frequency Musculoskeletal: Denies frequent falls, Denies gait dysfunction, Denies muscle weakness, Denies myalgias Integumentary: Denies pruritus, Denies rash, Denies wounds Neurological: Denies change in mentation, Denies change in speech, Denies numbness, Denies weakness Psychiatric: Denies anxiety, Denies depression Endocrine: Denies fatigue, Denies weight change Objective - Vital Signs Vital signs: Vital Signs Temp 98.3 F 05/09/19 07:00 Pulse 81 05/09/19 07:00 Resp 16 05/09/19 08:00 BP 123/62 05/09/19 07:00 Pulse Ox 96 05/09/19 07:00 Intake & Output 05/08/19 05/09/19 05/09/19 18:59 06:59 18:59 Intake Total 480 340 Output Total 2 Balance -2 480 340 Intake: Oral 480 340 Output: Urine 2 Other: Voiding Method Toilet Toilet # Voids 2 1 - Exam Gen: This is a 79-year-old female. Patient is sitting up in chair and appears to be uncomfortable due to pain in the right shoulder. HEENT: Head is atraumatic, normocephalic. Pupils equal, round. Sclerae is anicteric. NECK: Supple. No JVD. No lymphadenopathy. No thyromegaly. LUNGS: Clear to auscultation. No wheezes or rhonchi. No intercostal retractions. HEART: Regular rate and rhythm. No murmur. ABDOMEN: Soft. Bowel sounds are present. No masses. No tenderness. EXTREMITIES: No pedal edema. No calf tenderness. Dorsalis pedis +2 bilaterally. Right arm sling in place. NEUROLOGICAL: Patient is awake, alert and oriented x3. Cranial nerves 2 through 12 are grossly intact. - Labs Labs: Abnormal Lab Results - Last 24 Hours (Table) 05/08/19 05/08/19 05/09/19 Range/Units 16:32 19:45 06:41 POC Glucose (mg/dL) 124 H 141 H 133 H (75-99) mg/dL 05/09/19 Range/Units 11:45 POC Glucose (mg/dL) 134 H (75-99) mg/dL Microbiology - Last 24 Hours (Table) 05/07/19 12:58 Urine Culture - Final Urine,Voided Aerococcus urinae Assessment and Plan Plan: 1. Dislocation right humerus status post reduction. Patient has been seen by orthopedic. Patient to maintain sling and be nonweightbearing. Patient is to follow-up in the office in 2 weeks. 2. Hypertension. Continue Lotensin. 3. Hyperlipidemia. Continue Lopid. 4. History of diabetes mellitus type 2. 5. Recurrent depression and generalized anxiety disorder. Continue BuSpar 15 mg twice daily, Klonopin 2 mg 3 times daily. 6. Gastroesophageal reflux disease. Continue omeprazole. 7. History of diabetes mellitus type 2, resolved after weight loss. 8. Acute urinary tract infection, present on admission. Continue Rocephin. Await urine culture. Discharge plan: [facility] on Sunday. Impression and plan of care have been directed as dictated by the signing physician. Cheri Dewitt nurse practitioner acting as scribe for signing physician.
[2019-05-09 16:58] LABS: Glucose,Whole Blood 127 mg/dL (75-99)
[2019-05-09] MEDS: Acetaminophen-Codeine 300-30mg TAB PO PRN (17:19)
[2019-05-09 20:39] LABS: Glucose,Whole Blood 136 mg/dL (75-99)
[2019-05-10] MEDS: Acetaminophen-Codeine 300-30mg TAB PO PRN (05:28)
[2019-05-10 07:06] LABS: Glucose,Whole Blood 117 mg/dL (75-99)
[2019-05-10 07:39] VITALS: BP 117/70; PULSE 85; RESP 16; TEMP 98.2
[2019-05-10] MEDS: LISINOPRIL-HCTZ 10-12.5 MG 1 EACH TAB PO SCH (07:58)
[2019-05-10] MEDS: CHOLECALCIFEROL 1,000 UNIT TAB PO SCH (07:58)
[2019-05-10] MEDS: clonazePAM 1 MG TAB PO SCH (07:59)
[2019-05-10] MEDS: FAMOTIDINE 20 MG TAB PO SCH (07:59)
[2019-05-10] MEDS: CYANOCOBALAMIN 500 MCG TAB PO SCH (07:59)
[2019-05-10] MEDS: ATORVASTATIN 10 MG TAB PO SCH (07:59)
[2019-05-10] MEDS: busPIRone HCl 10 MG TAB PO SCH (07:59)
--- NOTE | 2019-05-10 10:04 | P.DS ---
Providers Date of admission: 05/07/19 02:38 Expected date of discharge: 05/10/19 Attending physician: García Balderrama Consults: 05/07/19 10:08 Consult Physician Routine Consulting Provider: Cornelius Garcia Reason/Comments: medical management Do you want consulting provider notified?: Yes Primary care physician: [facility] Course: This patient is an 79-year-old female with past medical history of hypertension, hyperlipidemia, GERD, diabetes type 2, significant, and recurrent depression and anxiety that fell in her home and hit a wall after tripping over her slippers. She was originally evaluated at [facility], but was transferred to [facility] ED due to failed reduction of a right shoulder dislocation. Patient subsequently underwent a successful reduction of the shoulder in the [facility] ED and was admitted under the care of Dr. Balderrama with a consult placed to internal medicine for medical management. Patient complained of right wrist pain throughout her hospital stay, and portable x-ray of the wrist taken on 05/09/19 showed a possible non-displaced fracture of the radial styloid. Patient is examined bedside this morning. She states her right shoulder pain has continued to improve, although still sore. She has continued to remain non- weight bearing of the right upper extremity in a sling. She continues to compl ain of right wrist pain today. She otherwise feels well and has no new complaints today. Vital signs stable. On examination, patient is sitting up in bed in no acute distress. She is alert and orientated x3. On inspection of the right upper extremity, sling is in place. There is no obvious deformity. There is ecchymosis of the anterior shoulder and arm. Mildly tender to palpation of the anterior shoulder. Shoulder [id number] is not tested due to recent dislocation. On inspection of the right wrist, there is diffuse swelling and tenderness. Range of motion of the wrist is decreased secondary to pain. No pain on palpation of the elbow, forearm, or hand. Radial pulse palpable, hand is warm and well perfused with brisk capillary refill. Neurovascular is intact. Patient is discharge to inpatient rehab today, pending medical clearance today. Please see med rec for accurate list of discharge medications. Patient Condition at Discharge: Fair Plan - Discharge Summary Discharge Rx Participant: Yes New Discharge Prescriptions: New traMADol HCL [Ultram] 50 mg PO Q4HR PRN #42 tab PRN Reason: Pain Docusate [Colace] 100 mg PO BID PRN cap PRN Reason: Constipation Cefuroxime [Ceftin] 250 mg PO BID #10 tablet Continue Benazepril/Hydrochlorothiazide [Lotensin Hct 10-12.5 mg Tablet] 1 tab PO DAILY Aspirin [Adult Low Dose Aspirin EC] 81 mg PO DAILY Cyanocobalamin (Vitamin B-12) [Vitamin B-12] 1,000 mcg PO DAILY busPIRone HCL 15 mg PO BID Gemfibrozil [Lopid] 600 mg PO DAILY cycloSPORINE [Restasis] 1 drop BOTH EYES BID Vitamin D3(Unknown Dose) 1 tab PO DAILY Omeprazole [PriLOSEC] 20 mg PO DAILY clonazePAM [KlonoPIN] 2 mg PO TID #9 tab Discharge Medication List Aspirin [Adult Low Dose Aspirin EC] 81 mg PO DAILY 04/17/16 [History] Benazepril/Hydrochlorothiazide [Lotensin Hct 10-12.5 mg Tablet] 1 tab PO DAILY 04/17/16 [History] Cyanocobalamin (Vitamin B-12) [Vitamin B-12] 1,000 mcg PO DAILY 07/25/17 [History] Gemfibrozil [Lopid] 600 mg PO DAILY 05/07/19 [History] Omeprazole [PriLOSEC] 20 mg PO DAILY 05/07/19 [History] Vitamin D3(Unknown Dose) 1 tab PO DAILY 05/07/19 [History] busPIRone HCL 15 mg PO BID 05/07/19 [History] cycloSPORINE [Restasis] 1 drop BOTH EYES BID 05/07/19 [History] Docusate [Colace] 100 mg PO BID PRN cap 05/09/19 [Rx] clonazePAM [KlonoPIN] 2 mg PO TID #9 tab 05/09/19 [Rx] traMADol HCL [Ultram] 50 mg PO Q4HR PRN #42 tab 05/09/19 [Rx] Cefuroxime [Ceftin] 250 mg PO BID #10 tablet 05/10/19 [Rx] Follow up Appointment(s)/Referral(s): García Balderrama MD [STAFF PHYSICIAN] - 05/21/19 9:00 am Gentry Metcalf MD [Primary Care Provider] - 05/15/19 11:30 am (after discharge from [facility]) Activity/Diet/Wound Care/Special Instructions: maintain sling. Removeable wrist brace, wear to comfort. non weightbearing RUE take meds as directed F/U in office in one week Discharge Disposition: TRANSFER TO SNF/ECF
== END 2019-05-10 10:35 | DRG 563 ==
LOC: EC 02:16 → 4SSUR 02:38
PROVIDERS: ADMIT Orthopaedic Surgery Sports Medicine; ATTEND Orthopaedic Surgery Sports Medicine
PROC: 0PSCXZZ Reposition Right Humeral Head, External Approach (ICD-10-PCS; principal; 2019-05-07)
DX: S42.291A Other displaced fracture of upper end of right humerus, initial encounter for closed fracture (principal); S52.514A Nondisplaced fracture of right radial styloid process, initial encounter for closed fracture; F33.9 Major depressive disorder, recurrent, unspecified; N39.0 Urinary tract infection, site not specified; W01.198A Fall on same level from slipping, tripping and stumbling with subsequent striking against other object, initial encounter; E11.9 Type 2 diabetes mellitus without complications; E78.5 Hyperlipidemia, unspecified; F41.1 Generalized anxiety disorder; I10 Essential (primary) hypertension; R09.02 Hypoxemia; Z79.82 Long term (current) use of aspirin; Z79.899 Other long term (current) drug therapy; Z80.0 Family history of malignant neoplasm of digestive organs; Z80.3 Family history of malignant neoplasm of breast; Z82.49 Family history of ischemic heart disease and other diseases of the circulatory system; Z85.828 Personal history of other malignant neoplasm of skin; Z90.710 Acquired absence of both cervix and uterus; Z60.2 Problems related to living alone; Z88.1 Allergy status to other antibiotic agents; Z88.5 Allergy status to narcotic agent; Z88.7 Allergy status to serum and vaccine; K59.00 Constipation, unspecified
CPT/HCPCS: 23650; 81001; 87086; 96361; 96374; 99152; 99284

== ENCOUNTER → 2020-12-15 | Outpatient (CLI) | payer MEDICARE, BC ==
--- NOTE | 2020-12-16 08:59 | MR ---
EXAMINATION TYPE: MR brain wo/w con DATE OF EXAM: 12/15/2020 COMPARISON: None HISTORY: Headache, history of right frontal meningioma, history of right side weakness. History of fa ll down stairs and hitting head 2019. CONTRAST: Performed utilizing 7.5 mL intravenous Gadavist gadolinium contrast. TECHNIQUE: Multiplanar, multiecho imaging on a 3.0 Angely magnet is performed through the brain. Stud y is performed within 24 hours of arrival to the hospital. The craniovertebral junction is normal. The pituitary is normal. Optic chiasm is visualized is norm al.. Normal flow voids within the intracranial cerebral vasculature Diffusion-weighted imaging is performed. No abnormal hyperintensity is present to suggest an acute i ntracranial infarct or acute ischemic change. There are patchy periventricular white matter hyperintensities, likely on the basis of chronic white matter ischemic change. There is ar dural based lesion along the superior right frontal parietal region measuring 1.1 x 1.4 c m. This has enhancement appears to have a dural tail. Meningioma is most likely within the differenti al. No significant mass effect on the adjacent brain is evident. Ventricles and sulci are prominent for the patient age. No abnormal enhancement is evident. IMPRESSIONS: 1. Patchy periventricular white matter hyperintensities, likely on the basis of chronic white matter ischemic change. 2. Enhancing dural based extra-axial lesion right frontoparietal vertex likely related to meningioma.
== END | disposition home or self-care (01) ==
LOC: RADMRIMAIN 16:24
PROVIDERS: ATTEND Family Medicine
DX: R90.82 White matter disease, unspecified (principal)
CPT/HCPCS: 70553; A9585

== ENCOUNTER → 2021-12-28 | Outpatient (CLI) | payer MEDICARE, BC ==
--- NOTE | 2021-12-29 09:23 | MM ---
Reason for Exam: Screening (asymptomatic). Last mammogram was performed 2 year(s) and 10 month(s) ago. Patient History: Menarche at age 10. First Full-Term at age 20. Left ovary removed at age 46. Right ovary removed at age 46. Hysterectomy at age 46. Postmenopausal. Other cancer. Previous Atypical Lobular Hyperplasia at age 67. Estrogen for 21 years from age 46 until age 68. Core Biopsy on the Right side. 02/26/2008, High risk Core Biopsy on the left side. 12/10/1998, Benign Stereotactic Core Biopsy on the right side. Daughter had breast cancer, age 57. Risk Values: Malou 5 year model risk: 8.2%. NCI Lifetime model risk: 9.9%. Prior Study Comparison: 10/29/2015 Bilateral Screening Mammogram, [facility]. 03/16/2017 Bilateral Screening Mammogram, [facility]. 03/20/2019 Bilateral Screening Mammogram, [facility]. Tissue Density: There are scattered fibroglandular densities. Findings: Analyzed By CAD. Chronic nodularity is present bilaterally. Core marker is within bilateral breasts. No suspicious groups of microcalcifications, spiculated or lobular masses, architectural distortion or other secondary signs of malignancy are mammographically apparent. Overall Assessment: Benign, BI-RAD 2 Management: Screening Mammogram of both breasts in 1 year. A negative mammogram report should not preclude additional follow up of suspicious palpable abnormalities. Patient should continue monthly self breast exam. A clinical breast exam by your physician is recommended on an annual basis and results should be correlated with mammographic findings. Electronically signed and approved by: Bill Cordero D.O. Radiologis
== END | disposition home or self-care (01) ==
LOC: RADMAMWWP 16:04
PROVIDERS: ATTEND Family Medicine
DX: Z12.31 Encounter for screening mammogram for malignant neoplasm of breast (principal); Z78.0 Asymptomatic menopausal state
CPT/HCPCS: 77063; 77067

== ENCOUNTER → 2024-11-12 | Outpatient (CLI) | payer MEDICARE, BC ==
--- NOTE | 2024-11-12 13:51 | CT ---
EXAMINATION TYPE: CT brain wo con DATE OF EXAM: 11/12/2024 COMPARISON: CT brain and C-spine dated 07/25/2017 CLINICAL INDICATION: Female, 84 years old with history of Z86.011 hx neoplasm brain; PHH, change in m ental status, history of benign tumor CT DLP: 1824 mGycm Automated exposure control for dose reduction was used. Findings: The ventricles, basal cisterns and sulci over convexities are mildly to moderately enlarged consisten t with mild to moderate generalized atrophy appropriate for the patient's age. There is no mass effec t or shift of midline structures. There is a stable 1 cm densely calcified right frontal extra-axial mass consistent with a stable meni ngioma. There is no acute intra or extra-axial hemorrhage. The posterior fossa including the brainstem, fourth ventricle and cerebellopontine angles appear bridger sly normal. The intraorbital contents appear normal symmetric. Visualized paranasal sinuses and mastoid air cells are well aerated. IMPRESSION: 1. No acute bleed or mass effect. 2. Mild to moderate age-appropriate atrophy. 3. Stable 1 cm extra-axial right frontal mass consistent with a meningioma [facility], , 11/12/2024 1:49 PM
--- NOTE | 2024-11-12 13:53 | CT ---
EXAMINATION TYPE: CT sinus wo con DATE OF EXAM: 11/12/2024 COMPARISON: CLINICAL INDICATION: Female, 84 years old with history of J32.0 sinusitis; PHH, chronic sinusitis TECHNIQUE: CT scan of the sinuses is performed without contrast, axial images are obtained, coronal r eformatted images are also reviewed. CT DLP: [address] CTDI: mGy Automated exposure control for dose reduction was used. FINDINGS: The paranasal sinuses including the frontal, ethmoid, sphenoid, and maxillary sinuses bilaterally are well-aerated without abnormal opacification. The ostiomeatal complex is patent bilaterally on the c oronal images. Visualized portion of mastoid air cells show no abnormal opacification. The globes are intact bilate rally. There is mild to moderate deviation of the nasal septum to the left The intraorbital contents appear normal and symmetric. There are no focal osseous lesions. There is a benign stable 1 cm calcified right frontal meningioma. See CT brain of the same date. IMPRESSION: The sinuses are clear and the ostiomeatal complex is patent bilaterally. [facility], , 11/12/2024 1:51 PM
== END | disposition home or self-care (01) ==
LOC: RADCTMAIN 13:07
PROVIDERS: ATTEND Otolaryngology
DX: J32.0 Chronic maxillary sinusitis (principal); G31.1 Senile degeneration of brain, not elsewhere classified; Z86.011 Personal history of benign neoplasm of the brain
CPT/HCPCS: 70450; 70486